=== PATIENT | female | born 1990 | race Caucasian/White ===

== ENCOUNTER 2018-10-30 16:31 | Emergency (ER) | payer BC, MEDICAID ==
[2018-10-30 16:59] VITALS: BP 123/76
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
--- NOTE | 2018-11-02 08:48 | CR ---
Chest and right ribs: Frontal view of the chest was obtained as well as three views of the right ribs. Comparison: No prior chest or rib study. Heart size and mediastinum are within normal limits. Lungs are clear with no acute parenchymal change. No discrete fracture or other right-sided rib abnormality is appreciated. Impression: 1. Nothing acute is appreciated on frontal chest x-ray. 2. No discrete right-sided rib abnormality is identified. Diagnostic code #1
== END 2018-10-30 18:46 | disposition home or self-care (01) ==
LOC: JD.ED 16:31
DX: R07.81 Pleurodynia (principal); F17.210 Nicotine dependence, cigarettes, uncomplicated; Z88.5 Allergy status to narcotic agent
CPT/HCPCS: 71101-26-RT; 71101-RT; 99283-25

== ENCOUNTER 2021-10-06 14:27 | Emergency (ER) | payer BC, MEDICAID ==
[2021-10-06 14:47] VITALS: BP 135/84; PULSE 65
== END 2021-10-06 16:54 | disposition home or self-care (01) ==
LOC: JD.ED 14:27
DX: K04.7 Periapical abscess without sinus (principal); Z79.899 Other long term (current) drug therapy; Z88.5 Allergy status to narcotic agent
CPT/HCPCS: 99282

== ENCOUNTER 2021-11-10 21:37 | Emergency (ER) | payer MEDICAID ==
[2021-11-10 22:16] VITALS: BP 127/85; PULSE 59
[2021-11-11] MEDS ORDERED: Ketorolac 15 MG/ML SDV IM ONE (00:08)
== END 2021-11-11 00:50 | disposition home or self-care (01) ==
LOC: JD.ED 21:37
DX: K03.81 Cracked tooth (principal); K04.7 Periapical abscess without sinus; F17.210 Nicotine dependence, cigarettes, uncomplicated; Z88.5 Allergy status to narcotic agent
CPT/HCPCS: 96372; 99282; J1885; 99283

== ENCOUNTER 2022-07-26 00:18 | Inpatient (IN) | payer MEDICAID ==
[2022-07-26] MEDS ORDERED: Ondansetron 4 MG/2 ML SDV IVPUSH PRN (01:05)
[2022-07-26] MEDS ORDERED: Nalbuphine 10 MG/0.5 ML Syringe IVPUSH PRN (01:05)
[2022-07-26] MEDS ORDERED: Oxytocin/Lactated Ringers 10 UNIT/1,000 ML BAG IV SCH ×2 (01:15)
[2022-07-26] MEDS ORDERED: Lactated Ringers 1,000 ML IV SCH (01:15)
[2022-07-26] MEDS ORDERED: Lidocaine 1% 20 ML MDV INJECT ONE (06:14)
[2022-07-26] MEDS ORDERED: Witch Hazel Medicated Pads 40/Jar TOP PRN (09:16)
[2022-07-26] MEDS ORDERED: Benzocaine/Menthol 20%-0.5% Spray 78 GM Cannister TOP PRN (09:16)
[2022-07-26] MEDS ORDERED: Acetaminophen 325 MG Tab PO PRN (09:16)
[2022-07-26] MEDS ORDERED: Ibuprofen 600 MG Tab PO PRN (09:16)
[2022-07-27] MEDS: Docusate Sodium 100 MG Cap PO PRN ×2 (11:03→20:27)
[2022-07-28 09:02] VITALS: BP 122/55; PULSE 53
== END 2022-07-28 09:15 | disposition home or self-care (01) | DRG 807 ==
LOC: JD.OBCHECK 00:18 → JD.OB 00:20 → JD.OBCHECK 01:04 → JD.OB 01:05 → OBSVTOIN 07:54 → JD.OB 07:55
PROVIDERS: ADMIT Obstetrics & Gynecology; ATTEND Obstetrics & Gynecology
PROC: 10E0XZZ Delivery of Products of Conception, External Approach (ICD-10-PCS; principal; 2022-07-26)
PROC: 10907ZC Drainage of Amniotic Fluid, Therapeutic from Products of Conception, Via Natural or Artificial Opening (ICD-10-PCS; 2022-07-26)
DX: O99.344 Other mental disorders complicating childbirth (principal); Z37.0 Single live birth; F41.9 Anxiety disorder, unspecified; F32.A Depression, unspecified; O77.0 Labor and delivery complicated by meconium in amniotic fluid; O26.893 Other specified pregnancy related conditions, third trimester; F60.3 Borderline personality disorder; Z87.891 Personal history of nicotine dependence; Z67.41 Type O blood, Rh negative; Z88.5 Allergy status to narcotic agent; Z91.040 Latex allergy status; Z3A.38 38 weeks gestation of pregnancy
CPT/HCPCS: 36415; 59025; 59409; 85025; 85461; 86592; 86850; 86870; 86900; 86901; A9270-GY; J2790